=== PATIENT | male | born 1970 | race Asian ===

== ENCOUNTER 2016-07-28 15:28 | Emergency (ER) | payer OTHER ==
[~2016-07-28] VITALS: Ht 170.2 cm; Wt 79.8 kg
[2016-07-28 15:36] VITALS: BP 138/79
--- NOTE | 2016-07-28 15:40 | NUR ---
PT AMBULATED WITH ASSISTANCE TO BED 2.
[2016-07-28] MEDS ORDERED: IBUPROFEN 400 MG TAB ONE (15:43)
--- NOTE | 2016-07-28 15:48 | NUR ---
PATIENT PRESENTS TO ED WITH FEVER . PT STATES IT STARTED THIS MORNING. DENIES N/V/D; SKIN IS PINK/WARM/DRY; AAOX4 WITH EVEN AND STEADY GAIT; LUNGS CLEAR BL; HR EVEN AND REGULAR; PT DENIES ANY FEVER, CP, SOB, OR COUGH AT THIS TIME; PATIENT STATES PAIN OF 5/10 AT THIS TIME; PATIENT POSITIONED FOR COMFORT; HOB ELEVATED; BEDRAILS UP X2; BED DOWN. ER MD MADE AWARE OF PT STATUS.
[2016-07-28] MEDS ORDERED: NACL 0.9% 1,000 ML IV ONE ×2 (16:00→18:10)
[2016-07-28] MEDS ORDERED: IBUPROFEN 400 MG TAB PO ONE (16:00)
--- NOTE | 2016-07-28 16:33 | NUR ---
DR. COTE EVALUATING PATIENT AT BEDSIDE.
[2016-07-28] MEDS ORDERED: METOCLOPRAMIDE 10 MG/2 ML INJ VIAL IVP ONE (17:35)
[2016-07-28] MEDS ORDERED: diphenhydrAMINE 50 MG/ML VIAL IVP ONE (17:35)
[2016-07-28] MEDS ORDERED: KETOROLAC 30 MG/ML VIAL IVP ONE (18:30)
--- NOTE | 2016-07-28 18:31 | NUR ---
PT BODY TEMP IS 101.4 PT C/O HEADACHE. MD MADE AWARE. AWAITING FOR ORDER.
--- NOTE | 2016-07-28 20:00 | NUR ---
PT SLEEPING W/O DISTRESS NOTED. RECHECK V/S STABLE. TeMP 98.9
[2016-07-28 20:59] VITALS: BP 103/56
--- NOTE | 2016-07-28 21:01 | NUR ---
Patient discharged with v/s stable. Written and verbal after care instructions given and explained. Patient alert, oriented and verbalized understanding of instructions. Ambulatory with steady gait. All questions addressed prior to discharge. ID band removed. Patient advised to follow up with PMD. Rx of MOTRIN, PREDNISONE given. Patient educated on indication of medication including possible reaction and side effects. Opportunity to ask questions provided and answered.
== END 2016-07-28 21:01 | disposition home or self-care (01) ==
LOC: MED 15:28
DX: R50.9 Fever, unspecified (principal); R05 Cough; R51 Headache; Z88.6 Allergy status to analgesic agent
CPT/HCPCS: 71010; 96361; 96374; 96375; 99285; J1200; J1885; J2765; J7030